=== PATIENT | male | born 1930 | race American Indian/Alaskan Native ===

== ENCOUNTER 2017-09-28 11:32 | Inpatient (IN) | payer MEDICARE ==
--- NOTE | 2017-09-28 11:53 | Emergency Department Report ---
HPI - General Time Seen by Provider: 09/28/17 11:39 - HPI HPI: A 87 year-old male presents to the emergency department via EMS from home with complaint of sudden nausea, vomiting, diaphoresis and upper abdominal pain. The patient is here with one of his caretakers who says that his vomit smelled like bile. He did not take anything and was not given anything for his symptoms prior presentation. His primary care physician is Dr. Ever Figueroa. He has a past medical history that includes DM, HTN and previous CVA. No recent travel or sick contacts at home. His tyre retreader is his medical decision maker and DPOA. ED Past Medical Hx - Past Medical History Hx Hypertension: Yes Hx CVA: Yes Hx Diabetes: Yes Hx Dementia: Yes (patient on Aricept) Hx HIV: No Additional medical history: high cholesterol; bells palsy; BPH - Surgical History Additional Surgical History: tonsillectomy - Social History Smoking Status: Never Smoker - Medications Home Medications: Home Medications Medication Instructions Recorded Confirmed Last Taken Type Atorvastatin (Nf) [Lipitor] 10 mg PO DAILY 03/17/13 09/28/17 Unknown History Clopidogrel [Plavix] 75 mg PO QDAY 03/17/13 09/28/17 Unknown History Donepezil HCl [Aricept Odt] 10 mg PO QDAY 03/17/13 09/28/17 Unknown History Gabapentin 100 mg PO QHS 03/17/13 09/28/17 Unknown History Losartan [Cozaar] 100 mg PO QDAY #30 tablet 03/19/13 09/28/17 Unknown Rx Insulin Aspart Prot/Aspart(Nf) 30 units SQ DAILY 01/01/14 09/28/17 01/01/14 History [NovoLOG Mix 70/30 VIAL] hydrALAZINE [Apresoline TAB] 50 mg PO Q12H 01/01/14 09/28/17 Unknown History NIFEdipine XL [Procardia Xl] 30 mg PO Q12HR #60 tablet 11/08/14 09/28/17 Unknown Rx Atenolol [Tenormin] 25 mg PO DAILY 09/28/17 09/28/17 Unknown History Esomeprazole Magnesium [NexIUM] 40 mg PO QDAY 09/28/17 09/28/17 Unknown History Tamsulosin [Flomax] 0.4 mg PO QHS 09/28/17 09/28/17 Unknown History amLODIPine [Norvasc] 5 mg PO BID 09/28/17 09/28/17 Unknown History ED Review of Systems ROS: Stated complaint: N/V X 1 HR Other details as noted in HPI Comment: All other systems reviewed and negative Constitutional: denies: chills, fever Eyes: denies: eye pain, eye discharge, vision change ENT: denies: ear pain, throat pain Respiratory: denies: cough, shortness of breath, wheezing Cardiovascular: denies: chest pain, palpitations Gastrointestinal: abdominal pain, nausea, vomiting Genitourinary: denies: urgency, dysuria Musculoskeletal: denies: back pain, joint swelling, arthralgia Skin: denies: rash, lesions Neurological: denies: headache, weakness, paresthesias Physical Exam - Physical Exam Physical Exam: GENERAL: The patient is well-developed well-nourished. HENT: Normocephalic. Atraumatic. Patient has moist mucous membranes. EYES: Extraocular motions are intact. Pupils equal reactive to light bilaterally. NECK: Supple. Trachea is midline. CHEST/LUNGS: Clear to auscultation. There is no respiratory distress noted. HEART/CARDIOVASCULAR: Regular. There is no tachycardia. There is no murmur. ABDOMEN: Abdomen is soft there is some upper abdominal tenderness to palpation. No guarding. Patient has normal bowel sounds. There is no abdominal distention. SKIN: There is no rash. There is no edema. There is no diaphoresis. NEURO: The patient is awake, alert and cooperative. The patient has no focal neurologic deficits. The patient has normal speech . MUSCULOSKELETAL: There is no tenderness or deformity. There is no evidence of acute injury. ED Medical Decision Making - Lab Data Result diagrams: 09/28/17 11:50 09/28/17 11:50 - EKG Data -: EKG Interpreted by Me EKG shows normal: sinus rhythm, axis, intervals, QRS complexes, ST-T waves Rate: bradycardia (56 bpm) - EKG Data When compared to previous EKG there are: no significant change Interpretation: unchanged when compared t (03/27/15) - Radiology Data Radiology results: report reviewed, image reviewed interpreted by me: Chest x-ray does not show any acute process. There are no pleural effusions, obvious pneumonia and there is no pneumothorax. Abdominal x-ray does not show any acute process. Nonspecific nonobstructive bowel gas. RIGHT UPPER QUADRANT ABDOMINAL ULTRASOUND: 09/28/17 11:32:00 CLINICAL: Upper abdominal pain. FINDINGS: High-resolution ultrasound demonstrated a normal liver. Normal hepatic vasculature and inferior vena cava. Moderate distention of the gallbladder and moderate gallbladder sludge. No cholelithiasis. The gall bladder wall measures 2.0 mm in thickness. No gallbladder tenderness to pressure of the probe. Normal intrahepatic and extra hepatic bile ducts. The common bile duct measures 5.0 mm diameter. The pancreas was not well imaged because of bowel gas. Normal upper abdominal aorta. The right kidney is normal and measures 9.7 x 6.2 x 5.3cm. No ascites or mass. IMPRESSION: Gallbladder sludge but no cholelithiasis and no signs of acute cholecystitis. Transcribed By: REF Dictated By: DAISY FLORES MD Electronically Authenticated By: DAISY FLORES MD Signed Date/Time: 09/28/17 1319 - Medical Decision Making Patient presented with the complaint of nausea, vomiting, abdominal pain, diaphoresis. Chest and abdominal x-ray did not show any acute process. EKG did not show any ST elevation PR. Labs are mostly unremarkable. He had an ultrasound that showed gallbladder sludge without cholecystitis but this could be the reason for his symptoms. However he has had 2 troponins thus far and they have started to trend upwards. The patient is not complaining of any chest pain at this time but he is a diabetic with a history of dementia and I cannot rule out that this is not some type of atypical cardiac event. On top of that the patient has some hypertension that is seen getting into the systolic 180. For these reasons and for further evaluation, the patient will be admitted to the hospital and has been accepted for admission by the hospitalist, Dr. Viera. - Differential Diagnosis PR, Cholelithiasis, Cholecystitis, Gastritis Critical care attestation.: If time is entered above; I have spent that time in minutes in the direct care of this critically ill patient, excluding procedure time. ED Disposition Clinical Impression: Physical deconditioning, Elevated troponin Hypertension Qualifiers: Hypertension type: essential hypertension Qualified Code(s): I10 - Essential ( primary) hypertension Nausea & vomiting Qualifiers: Vomiting type: unspecified Abdominal pain Qualifiers: Abdominal location: unspecified location Qualified Code(s): R10.9 - Unspecified abdominal pain Disposition: DC-09 OP ADMIT IP TO THIS HOSP Is pt being admited?: Yes Condition: Stable Time of Disposition: 18:32
[2017-09-28 12:06] LABS: Basophils % (Auto) 0.3 % (0.0-1.8); Eosinophils # (Auto) 0.1 K/mm3 (0.0-0.4); Eosinophils % (Auto) 0.8 % (0.0-4.3); Hematocrit 38.2 % (35.5-45.6); Hemoglobin 12.9 gm/dl (11.8-15.2); Lymphocytes # (Auto) 2.3 K/mm3 (1.2-5.4); Lymphocytes % (Auto) 23.5 % (13.4-35.0); Mean Corpuscular HGB Conc 34 % (32-34); Mean Corpuscular Hemoglobin 32 pg (28-32); Mean Corpuscular Volume 94 fl (84-94); Monocytes # (Auto) 0.5 K/mm3 (0.0-0.8); Platelet Count 152 K/mm3 (140-440); Red Blood Count 4.05 M/mm3 (3.65-5.03); Red Cell Distribution Width 14.5 % (13.2-15.2)
[2017-09-28 12:23] LABS: Alanine Aminotransferase 19 units/L (7-56); Albumin 3.8 g/dL (3.9-5); BUN/Creatinine Ratio 19; Blood Urea Nitrogen 25 mg/dL (9-20); Calcium 9.6 mg/dL (8.4-10.2); Hemolysis Index 6
[2017-09-28 12:27] LABS: Bilirubin,Direct < 0.2 mg/dL (0-0.2)
--- NOTE | 2017-09-28 13:13 | XRay Report ---
ABDOMINAL SERIES WITH CXR THREE VIEWS: 09/28/17 11:43:00 CLINICAL: Abdominal pain. FINDINGS: Abdomen: Supine upright views demonstrate no distended bowel and no air-fluid levels. A large volume of stool in the right colon, proximal transverse colon and rectum. No mass or suspicious calcifications. No pneumoperitoneum. Mild degenerative changes in the spine. Chest: Normal IMPRESSION: Negative chest and negative abdomen with abundant stool in the colon.
--- NOTE | 2017-09-28 13:27 | Ultrasound Report ---
RIGHT UPPER QUADRANT ABDOMINAL ULTRASOUND: 09/28/17 11:32:00 CLINICAL: Upper abdominal pain. FINDINGS: High-resolution ultrasound demonstrated a normal liver. Normal hepatic vasculature and inferior vena cava. Moderate distention of the gallbladder and moderate gallbladder sludge. No cholelithiasis. The gall bladder wall measures 2.0 mm in thickness. No gallbladder tenderness to pressure of the probe. Normal intrahepatic and extra hepatic bile ducts. The common bile duct measures 5.0 mm diameter. The pancreas was not well imaged because of bowel gas. Normal upper abdominal aorta. The right kidney is normal and measures 9.7 x 6.2 x 5.3cm. No ascites or mass. IMPRESSION: Gallbladder sludge but no cholelithiasis and no signs of acute cholecystitis.
[2017-09-28 15:01] LABS: Bacteria,Urine 4+ /HPF (Negative); Bilirubin,Urine NEG (Negative); Blood,Urine SM (Negative); Color,Urine Yellow (Yellow); Mucus,Urine FEW /HPF; Urobilinogen,Urine < 2.0 mg/dL (<2.0)
--- NOTE | 2017-09-28 17:15 | History and Physical Report ---
History of Present Illness Chief complaint: No acting right. History of present illness: 87 YO Male with HTN, CVA, DM, Dementia, HLD, BPH presents to ED for evaluation. Pt is confused and unable to provide detailed history. Pt history taken from ED staff, and POA who states that patient has n ot been acting right for the past 2 days. As per POA, the patient has experienced pain in his chest and abdomen for the past day, with worsening symptoms over the past 8 hours. Pt is unable to rate his pain, but was observed to have nausea, vomiting, and diaphoresis. No reports of fever, chills, palpitation, syncope, trauma, falls, productive cough, unintentional weight loss, night sweats, skin rash, or recent ill contacts. No further history is made available. Pt seen and evaluated in ED and found to have Hypertensive Encephalopathy as well as evidence of Acute congestive Heart Failure. Pt admitted to telemetry. Cardiology consulted in ED. Past History Past Medical History: diabetes, hyperlipidemia, other (Dementia, BPH) Past Surgical History: tonsillectomy Social history: single. denies: smoking, alcohol abuse, prescription drug abuse Family history: diabetes, hypertension Medications and Allergies Allergies Allergy/AdvReac Type Severity Reaction Status Date / Time Penicillins Allergy Hives Verified 09/28/17 11:53 Home Medications Medication Instructions Recorded Confirmed Last Taken Type Atorvastatin (Nf) [Lipitor] 10 mg PO DAILY 03/17/13 09/28/17 Unknown History Clopidogrel [Plavix] 75 mg PO QDAY 03/17/13 09/28/17 Unknown History Donepezil HCl [Aricept Odt] 10 mg PO QDAY 03/17/13 09/28/17 Unknown History Gabapentin 100 mg PO QHS 03/17/13 09/28/17 Unknown History Losartan [Cozaar] 100 mg PO QDAY #30 tablet 03/19/13 09/28/17 Unknown Rx Insulin Aspart Prot/Aspart(Nf) 30 units SQ DAILY 01/01/14 09/28/17 01/01/14 History [NovoLOG Mix 70/30 VIAL] hydrALAZINE [Apresoline TAB] 50 mg PO Q12H 01/01/14 09/28/17 Unknown History NIFEdipine XL [Procardia Xl] 30 mg PO Q12HR #60 tablet 11/08/14 09/28/17 Unknown Rx Atenolol [Tenormin] 25 mg PO DAILY 09/28/17 09/28/17 Unknown History Esomeprazole Magnesium [NexIUM] 40 mg PO QDAY 09/28/17 09/28/17 Unknown History Tamsulosin [Flomax] 0.4 mg PO QHS 09/28/17 09/28/17 Unknown History amLODIPine [Norvasc] 5 mg PO BID 09/28/17 09/28/17 Unknown History Review of Systems ROS unobtainable: due to mental status Exam - Constitutional Vitals: Temp Pulse Resp BP Pulse Ox 98.6 F 61 18 162/83 100 09/28/17 11:35 09/28/17 14:55 09/28/17 14:55 09/28/17 14:55 09/28/17 14:55 General appearance: Present: mild distress - EENT Eyes: Present: PERRL ENT: hearing intact, clear oral mucosa - Neck Neck: Present: supple, normal ROM - Respiratory Respiratory effort: normal Respiratory: bilateral: CTA - Cardiovascular Heart Sounds: Present: S1 & S2. Absent: rub, click - Extremities Extremities: pulses symmetrical, No edema Extremity abnormal: edema Peripheral Pulses: within normal limits - Abdominal General gastrointestinal: Present: soft, non-tender, non-distended, normal bowel sounds Male genitourinary: Present: normal - Integumentary Integumentary: Present: clear, warm, dry - Musculoskeletal Musculoskeletal: generalized weakness - Psychiatric Psychiatric: no intact judgment & insight, no memory intact - Neurologic Neurologic: moves all extremities, other (confused, ) Results - Labs CBC & Chem 7: 09/28/17 11:50 09/28/17 11:50 Labs: Abnormal lab results 09/28/17 09/28/17 Range/Units 11:50 11:50 Seg Neutrophils % 70.4 H (40.0-70.0) % BUN 25 H (9-20) mg/dL Glucose 107 H (75-100) mg/dL Albumin 3.8 L (3.9-5) g/dL Assessment and Plan - Patient Problems (1) CHF (congestive heart failure) Current Visit: Yes Status: Suspected Qualifiers: Heart failure type: systolic Heart failure chronicity: acute Qualified Code(s): I50.21 - Acute systolic (congestive) heart failure Plan to address problem: Admit to telemetry, strict I/O, uop q shift, daily weight, supplemental oxygen, BNP, Chest Xray, Echo, cardiology consulted. (2) Hypertensive encephalopathy syndrome Current Visit: Yes Status: Acute Plan to address problem: Monitor bp q shift, resume prehospital medication, IV hydralazine prn for systolic above 165 (3) BPH (benign prostatic hyperplasia) Current Visit: Yes Status: Acute Qualifiers: Lower urinary tract symptom presence: unspecified whether lower urinary tract symptoms present Qualified Code(s): N40.0 - Benign prostatic hyperplasia without lower urinary tract symptoms Plan to address problem: continue prehospital medical management, monitor uop q shift (4) Diabetes mellitus Current Visit: No Status: Chronic Qualifiers: Diabetes mellitus type: type 2 Diabetes mellitus complication status: with unspecified complications Qualified Code(s): E11.8 - Type 2 diabetes mellitus with unspecified complications Plan to address problem: consistent carbohydrate diet, insulin, accu check (5) DVT prophylaxis Current Visit: No Status: Acute Plan to address problem: SCD to BLE
[2017-09-28] MEDS ORDERED: ZOFRAN IV PRN (17:18)
[2017-09-28] MEDS ORDERED: BABY ASPIRIN PO STA (17:18)
[2017-09-28] MEDS ORDERED: TYLENOL PO PRN (17:18)
[2017-09-28] MEDS ORDERED: NITROSTAT SL PRN (17:18)
[2017-09-28] MEDS ORDERED: SODIUM CHLORIDE FLUSH SYRINGE 10 ML IV PRN ×2 (17:18)
[2017-09-28] MEDS ORDERED: PROVENTIL IH PRN (17:18)
[2017-09-28 17:56] LABS: Chol/HDL Ratio 2.1 %
[2017-09-28] MEDS: APRESOLINE PO SCH (17:57)
[2017-09-28] MEDS: PROCARDIA XL PO SCH (22:42)
[2017-09-28] MEDS: NEURONTIN PO SCH (22:42)
[2017-09-28] MEDS: FLOMAX PO SCH (22:42)
[2017-09-28] MEDS: NORVASC PO SCH (22:44)
[2017-09-28] MEDS: SODIUM CHLORIDE FLUSH SYRINGE 10 ML IV SCH (22:45)
[2017-09-29] MEDS ORDERED: NON-FORMULARY (Esomeprazole Magnesium [Nexium] 40 MG) PO SCH (10:00)
[2017-09-29] MEDS ORDERED: TENORMIN PO SCH (10:00)
[2017-09-29] MEDS ORDERED: DONEPEZIL HCL 10 MG PO SCH (10:00)
[2017-09-29] MEDS ORDERED: NON-FORMULARY (Insulin Aspart Prot/Aspart(Nf) 30 UNITS) SQ SCH (10:00)
[2017-09-29] MEDS: PLAVIX PO SCH ×2 (10:24→14:00)
[2017-09-29] MEDS: NORVASC PO SCH ×2 (10:24→22:50)
[2017-09-29] MEDS: PROTONIX PO SCH ×2 (10:24→14:01)
[2017-09-29] MEDS: PROCARDIA XL PO SCH ×2 (10:24→22:55)
[2017-09-29] MEDS: ARICEPT PO SCH ×2 (10:24→14:03)
[2017-09-29] MEDS: APRESOLINE PO SCH ×2 (10:24→22:55)
[2017-09-29] MEDS: COZAAR PO SCH (10:24)
[2017-09-29] MEDS: SODIUM CHLORIDE FLUSH SYRINGE 10 ML IV SCH ×3 (10:25→22:55)
--- NOTE | 2017-09-29 13:21 | Progress Note ---
Assessment and Plan / Abdominal pain likely due to gall bladder sludge? no N/V now, will start on diet, if no improvement will consult GS / Suspected CHF (congestive heart failure) on amission strict I/O, uop q shift, daily weight, supplemental oxygen, will follow Echo, cardiology consulted. / Hypertension Monitor bp q shift, resume prehospital medication, IV hydralazine prn for systolic above 165 / BPH (benign prostatic hyperplasia) continue prehospital medical management, monitor uop q shift / Diabetes mellitus type 2 consistent carbohydrate diet, insulin, accu check / DVT prophylaxis SCD to BLE Brief History: The patient is an 87-year-old man with a history of dementia, diabetes, hypertension and old CVA. He was reported by his caregiver is to have recurrent vomiting and complained of some abdominal pain. Abdominal US showed gall bladder sludge, no sign of cholecystitis. Subjective Date of service: 09/29/17 Interval history: Pt seen and examined states abdominal pain improved, no N/V denies SOB/chest pain Objective - Constitutional Vitals: Vital Signs - 12hr 09/29/17 09/29/17 09/29/17 06:19 07:59 10:00 Temperature 98.1 F 98.2 F Pulse Rate 55 L 55 L Pulse Rate [ 54 L Apical] Pulse Rate [ 56 L Left Radial] Pulse Rate [ 56 L Right Radial] Respiratory 20 20 Rate Blood Pressure 134/57 133/64 O2 Sat by Pulse 97 95 Oximetry 09/29/17 11:39 Temperature Pulse Rate 52 L Pulse Rate [ Apical] Pulse Rate [ Left Radial] Pulse Rate [ Right Radial] Respiratory Rate Blood Pressure O2 Sat by Pulse Oximetry General appearance: Present: no acute distress, other (elderly) - EENT Eyes: PERRL, EOM intact ENT: hearing intact, clear oral mucosa Ears: bilateral: normal - Neck Neck: supple, normal ROM - Respiratory Respiratory effort: normal Respiratory: bilateral: CTA - Cardiovascular Rhythm: regular Heart Sounds: Present: S1 & S2. Absent: gallop, rub Extremities: pulses intact, No edema, normal color, Full ROM - Gastrointestinal General gastrointestinal: Present: soft, non-tender, non-distended, normal bowel sounds - Integumentary Integumentary: clear, warm, dry - Musculoskeletal Musculoskeletal: 1, strength equal bilaterally - Neurologic Neurologic: moves all extremities - Psychiatric Psychiatric: memory intact, appropriate mood/affect, intact judgment & insight - Labs CBC & Chem 7: 09/28/17 11:50 09/30/17 04:36 Labs: Abnormal lab results 09/28/17 09/28/17 09/29/17 Range/Units 17:26 22:26 08:07 POC Glucose 222 H 177 H (70-105) HDL Cholesterol 83 H (40-59) mg/dL 09/29/17 Range/Units 12:14 POC Glucose 182 H (70-105) HDL Cholesterol (40-59) mg/dL - Imaging and cardiology US - abdomen: report reviewed
--- NOTE | 2017-09-29 13:23 | Consultation ---
History of Present Illness Consult date: 09/29/17 Consult reason: other ("acs") History of present illness: The patient is an 87-year-old man with a history of dementia, diabetes, hypertension and old CVA. He was reported by his caregiver is to have recurrent vomiting and complained of some abdominal pain. There was no complaint of chest pain, no observation of shortness of breath and the patient has no lower extremity edema. On presentation, the EKG shows a normal sinus rhythm, left axis deviation, left ventricular hypertrophy but no ST or T wave. Currently, the patient is comfortable in his bed in the telemetry unit. Past History Past Medical History: diabetes, hyperlipidemia, other (Dementia, BPH) Past Surgical History: tonsillectomy Social history: single. denies: smoking, alcohol abuse, prescription drug abuse Family history: diabetes, hypertension Medications and Allergies Allergies Allergy/AdvReac Type Severity Reaction Status Date / Time Penicillins Allergy Hives Verified 09/28/17 11:53 Home Medications Medication Instructions Recorded Confirmed Last Taken Type Atorvastatin (Nf) [Lipitor] 10 mg PO DAILY 03/17/13 09/28/17 Unknown History Clopidogrel [Plavix] 75 mg PO QDAY 03/17/13 09/28/17 Unknown History Donepezil HCl [Aricept Odt] 10 mg PO QDAY 03/17/13 09/28/17 Unknown History Gabapentin 100 mg PO QHS 03/17/13 09/28/17 Unknown History Losartan [Cozaar] 100 mg PO QDAY #30 tablet 03/19/13 09/28/17 Unknown Rx Insulin Aspart Prot/Aspart(Nf) 30 units SQ DAILY 01/01/14 09/28/17 01/01/14 History [NovoLOG Mix 70/30 VIAL] hydrALAZINE [Apresoline TAB] 50 mg PO Q12H 01/01/14 09/28/17 Unknown History NIFEdipine XL [Procardia Xl] 30 mg PO Q12HR #60 tablet 11/08/14 09/28/17 Unknown Rx Atenolol [Tenormin] 25 mg PO DAILY 09/28/17 09/28/17 Unknown History Esomeprazole Magnesium [NexIUM] 40 mg PO QDAY 09/28/17 09/28/17 Unknown History Tamsulosin [Flomax] 0.4 mg PO QHS 09/28/17 09/28/17 Unknown History amLODIPine [Norvasc] 5 mg PO BID 09/28/17 09/28/17 Unknown History Active Meds: Active Medications Acetaminophen (Tylenol) 650 mg PO Q4H PRN PRN Reason: Pain MILD(1-3)/Fever >100.5/MACK Albuterol (Proventil) 2.5 mg IH Q4HRT PRN PRN Reason: Shortness Of Breath Amlodipine Besylate (Norvasc) 5 mg PO BID [facility] Last Admin: 09/29/17 10:24 Dose: Not Given Atenolol (Tenormin) 25 mg PO DAILY [facility] Last Admin: 09/29/17 10:25 Dose: Not Given Atorvastatin Calcium (Lipitor) 10 mg PO DAILY [facility] Last Admin: 09/29/17 10:24 Dose: Not Given Clopidogrel Bisulfate (Plavix) 75 mg PO QDAY [facility] Last Admin: 09/29/17 10:24 Dose: Not Given Donepezil HCl (Aricept) 10 mg PO QDAY [facility] Last Admin: 09/29/17 10:24 Dose: Not Given Gabapentin (Neurontin) 100 mg PO QHS [facility] Last Admin: 09/28/17 22:42 Dose: 100 mg Hydralazine HCl (Apresoline) 50 mg PO Q12HR [facility] Last Admin: 09/29/17 10:24 Dose: Not Given Insulin Human Isoph/Insulin Regular (Humulin 70/30) 30 unit SUB-Q QDDIAB [facility] Last Admin: 09/29/17 08:00 Dose: Not Given Losartan Potassium (Cozaar) 100 mg PO QDAY [facility] Last Admin: 09/29/17 10:24 Dose: Not Given Nifedipine (Procardia Xl) 30 mg PO Q12HR [facility] Last Admin: 09/29/17 10:24 Dose: Not Given Nitroglycerin (Nitrostat) 0.4 mg SL Q5M PRN PRN Reason: Chest Pain Ondansetron HCl (Zofran) 4 mg IV Q8H PRN PRN Reason: Nausea And Vomiting Pantoprazole Sodium (Protonix) 40 mg PO DAILY [facility] Last Admin: 09/29/17 10:24 Dose: Not Given Sodium Chloride (Sodium Chloride Flush Syringe 10 Ml) 10 ml IV BID [facility] Last Admin: 09/29/17 10:25 Dose: Not Given Sodium Chloride (Sodium Chloride Flush Syringe 10 Ml) 10 ml IV PRN PRN PRN Reason: LINE FLUSH Tamsulosin HCl (Flomax) 0.4 mg PO QHS [facility] Last Admin: 09/28/17 22:42 Dose: 0.4 mg Review of Systems ROS unobtainable: due to mental status Physical Examination Vital Signs Temp Pulse Resp BP Pulse Ox 98.6 F 58 L 18 176/70 97 09/28/17 11:35 09/28/17 11:35 09/28/17 11:35 09/28/17 11:35 09/28/17 11:35 General appearance: no acute distress HEENT: Positive: PERRL Neck: Positive: neck supple Cardiac: Positive: Reg Rate and Rhythm Lungs: Positive: Decreased Breath Sounds Neuro: Positive: Grossly Intact Abdomen: Positive: Soft Male genitourinary: Positive: deferred Skin: Positive: Clear Extremities: Absent: edema Results 09/28/17 11:50 09/28/17 11:50 Lipids 09/28/17 Range/Units 17:26 Triglycerides 43 (2-149) mg/dL Cholesterol 175 (50-199) mg/dL HDL Cholesterol 83 H (40-59) mg/dL Cholesterol/HDL Ratio 2.10 % EKG interpretations - Telemetry EKG Rhythm: Sinus Rhythm Assessment and Plan - Patient Problems (1) Nausea & vomiting Current Visit: Yes Status: Acute Qualifiers: Vomiting type: unspecified Plan to address problem: Patient presented with nausea vomiting and abdominal pain. There are no cardiac symptoms reported by either patient or his caregivers. ECG is in normal sinus rhythm with no ischemic changes. The patient is a frail, elderly 87-year-old with advanced dementia, currently in no acute distress. Recommend no further cardiac workup is indicated at this time. Refer to medical service and gastroenterology for workup of his presenting nausea vomiting and abdominal pain. Will follow intermittently.
[2017-09-29] MEDS: NEURONTIN PO SCH (22:55)
[2017-09-29] MEDS: FLOMAX PO SCH (22:55)
[2017-09-30 05:25] LABS: BUN/Creatinine Ratio 16; Blood Urea Nitrogen 21 mg/dL (9-20); Calcium 8.4 mg/dL (8.4-10.2); Hemolysis Index 16
[2017-09-30] MEDS ORDERED: APRESOLINE PO SCH (08:13)
[2017-09-30] MEDS: PROTONIX PO SCH (10:45)
[2017-09-30] MEDS: ARICEPT PO SCH (10:45)
[2017-09-30] MEDS: LASIX PO SCH (10:46)
[2017-09-30] MEDS: PLAVIX PO SCH (10:46)
[2017-09-30] MEDS: SODIUM CHLORIDE FLUSH SYRINGE 10 ML IV SCH ×2 (10:54→22:47)
[2017-09-30] MEDS: NORVASC PO SCH (10:55)
[2017-09-30] MEDS: COZAAR PO SCH (11:21)
[2017-09-30] MEDS: HumuLIN R SUB-Q SCH ×3 (12:30→22:46)
[2017-09-30] MEDS ORDERED: APRESOLINE IV PRN (13:06)
--- NOTE | 2017-09-30 14:20 | Progress Note ---
Assessment and Plan - Patient Problems (1) Nausea & vomiting Current Visit: Yes Status: Acute Qualifiers: Vomiting type: unspecified Plan to address problem: Patient presented with nausea vomiting and abdominal pain. There are no cardiac symptoms reported by either patient or his caregivers. ECG is in normal sinus rhythm with no ischemic changes. The patient is a frail, elderly 87-year-old with advanced dementia, currently in no acute distress. Recommend no further cardiac workup is indicated at this time. Refer to medical service and gastroenterology for workup of his presenting nausea vomiting and abdominal pain. Will follow intermittently. Subjective Date of service: 09/30/17 Interval history: Patient is comfortable, no new cardiac complaints. Objective Vital Signs Temp Pulse Pulse Resp BP Pulse Ox 09/30/17 11:21 60 176/73 09/30/17 11:14 97.6 F 18 176/73 09/30/17 10:55 56 L 125/65 09/30/17 10:00 99 09/30/17 08:46 47 L 09/30/17 07:57 97.9 F 57 L 8 L 125/65 98 09/30/17 04:47 98.3 F 51 L 20 145/61 96 09/30/17 02:46 56 L 09/29/17 23:55 98.2 F 56 L 18 140/57 98 09/29/17 22:55 58 L 119/50 09/29/17 22:01 99 09/29/17 21:07 53 L 09/29/17 20:07 99.3 F 54 L 16 119/50 97 09/29/17 17:07 97.6 F 54 L 18 134/59 97 09/29/17 14:29 98.4 F 51 L 18 140/58 98 - Physical Examination General: No Apparent Distress HEENT: Positive: PERRL Neck: Positive: neck supple Cardiac: Positive: Reg Rate and Rhythm Lungs: Positive: Decreased Breath Sounds Neuro: Positive: Grossly Intact Abdomen: Positive: Soft Skin: Positive: Clear Extremities: Absent: edema - Labs and Meds Comprehensive Metabolic Panel 09/30/17 Range/Units 04:36 Sodium 139 (137-145) mmol/L Potassium 3.8 (3.6-5.0) mmol/L Chloride 101.5 (98-107) mmol/L Carbon Dioxide 29 (22-30) mmol/L BUN 21 H (9-20) mg/dL Creatinine 1.3 (0.8-1.5) mg/dL Glucose 158 H (75-100) mg/dL Calcium 8.4 (8.4-10.2) mg/dL
--- NOTE | 2017-09-30 14:26 | Progress Note ---
Assessment and Plan / Abdominal pain likely due to gall bladder sludge? no N/V now, tolerating diet, f/u GS outpt / Suspected CHF (congestive heart failure) on admission, ruled out strict I/O, uop q shift, daily weight, supplemental oxygen, cardiology consulted. 2d echo showed preserved EF / Hypertension Monitor bp q shift, IV hydralazine prn for systolic above 160 BP stable with current meds /Sinus Bradycardia hold BB and procardia / BPH (benign prostatic hyperplasia) continue flomax, monitor uop q shift /dementia, cont aricept /Physical debility, consult PT / Diabetes mellitus type 2 consistent carbohydrate diet, insulin, accu check / DVT prophylaxis SCD to BLE Disposition: follow PT eval. may need placement. Brief History: The patient is an 87-year-old man with a history of dementia, diabetes, hypertension and old CVA. He was reported by his caregiver is to have recurrent vomiting and complained of some abdominal pain. Abdominal US showed gall bladder sludge, no sign of cholecystitis. Admitted for concern of CHF and further management for abdominal pain. Physical exam: General appearance: Present: no acute distress, other (elderly) - EENT Eyes: PERRL, EOM intact ENT: hearing intact, clear oral mucosa Ears: bilateral: normal - Neck Neck: supple, normal ROM - Respiratory Respiratory effort: normal Respiratory: bilateral: CTA - Cardiovascular Rhythm: regular Heart Sounds: Present: S1 & S2. Absent: gallop, rub Extremities: pulses intact, No edema, normal color, Full ROM - Gastrointestinal General gastrointestinal: Present: soft, non-tender, non-distended, normal bowel sounds - Integumentary Integumentary: clear, warm, dry - Musculoskeletal Musculoskeletal: 1, strength equal bilaterally - Neurologic Neurologic: moves all extremities - Psychiatric Psychiatric: memory intact, appropriate mood/affect, intact judgment & insight Subjective Date of service: 09/30/17 Interval history: Pt seen and examined states abdominal pain improved, no N/V, tolerated diet denies SOB/chest pain, RN reported unsteady gait, require assistance with ambulation Objective - Constitutional Vitals: Vital Signs - 12hr 09/30/17 09/30/17 09/30/17 02:46 04:47 07:57 Temperature 98.3 F 97.9 F Pulse Rate 56 L 51 L 57 L Respiratory 20 8 L Rate Blood Pressure 145/61 125/65 O2 Sat by Pulse 96 98 Oximetry 09/30/17 09/30/17 09/30/17 08:46 10:00 10:55 Temperature Pulse Rate 47 L 56 L Respiratory Rate Blood Pressure 125/65 O2 Sat by Pulse 99 Oximetry 09/30/17 09/30/17 11:14 11:21 Temperature 97.6 F Pulse Rate 60 Respiratory 18 Rate Blood Pressure 176/73 176/73 O2 Sat by Pulse Oximetry - Labs CBC & Chem 7: 09/28/17 11:50 09/30/17 04:36 Labs: Abnormal lab results 09/30/17 09/30/17 09/30/17 Range/Units 04:36 06:30 11:24 BUN 21 H (9-20) mg/dL Glucose 158 H (75-100) mg/dL POC Glucose 170 H 350 H (70-105)
[2017-09-30] MEDS: APRESOLINE PO SCH ×2 (15:36→22:44)
[2017-09-30] MEDS: FLOMAX PO SCH (22:44)
[2017-09-30] MEDS: NEURONTIN PO SCH (22:45)
[2017-10-01] MEDS: APRESOLINE PO SCH ×3 (05:58→23:20)
[2017-10-01 06:45] LABS: BUN/Creatinine Ratio 13; Blood Urea Nitrogen 16 mg/dL (9-20); Calcium 8.6 mg/dL (8.4-10.2); Hemolysis Index 7
[2017-10-01] MEDS: HumuLIN R SUB-Q SCH ×4 (08:12→23:22)
[2017-10-01] MEDS: ARICEPT PO SCH (09:35)
[2017-10-01] MEDS: PROTONIX PO SCH (09:35)
[2017-10-01] MEDS: LASIX PO SCH (09:35)
[2017-10-01] MEDS: PLAVIX PO SCH (09:35)
[2017-10-01] MEDS: NORVASC PO SCH (09:35)
[2017-10-01] MEDS: COZAAR PO SCH (09:36)
[2017-10-01] MEDS: SODIUM CHLORIDE FLUSH SYRINGE 10 ML IV SCH ×2 (09:43→23:22)
--- NOTE | 2017-10-01 15:27 | Progress Note ---
Assessment and Plan Assessment and plan: --Abdominal pain; symptoms significantly improved --Abdominal ultrasound :gall bladder sludge, consult surgery for evaluation Nothing by mouth midnight --Suspected CHF (congestive heart failure) on amission Echocardiogram within normal limits, ejection fraction 60-65%, supportive care No evidence of congestive heart failure --Hypertension; well controlled Continue current antihypertensives and when necessary medications -- BPH (benign prostatic hyperplasia) continue prehospital medical management, monitor uop q shift --Diabetes mellitus type 2 consistent carbohydrate diet, insulin, accu check --DVT prophylaxis; SCD, Lovenox --Physical therapy --Full CODE STATUS --DC planning case management/home with home health versus placement And medically stable History Interval history: Patient seen and examined medical records reviewed Patient feels slightly better but still complains of weakness Alert awake oriented 3 Vital signs reviewed Hospitalist Physical - Constitutional Vitals: Temp Pulse Resp BP Pulse Ox 98.7 F 70 18 127/57 98 10/01/17 12:45 10/01/17 14:55 10/01/17 12:45 10/01/17 14:55 10/01/17 12:45 General appearance: Present: no acute distress, cachectic, other (elderly) - EENT Eyes: Present: PERRL, EOM intact - Neck Neck: Present: supple, normal ROM - Respiratory Respiratory effort: normal Respiratory: bilateral: diminished, rhonchi, negative: rales, wheezing - Cardiovascular Rhythm: regular Heart Sounds: Present: S1 & S2 - Extremities Extremities: no ischemia, No edema - Abdominal General gastrointestinal: soft, non-tender, non-distended, normal bowel sounds - Integumentary Integumentary: Present: clear, warm - Psychiatric Psychiatric: appropriate mood/affect, cooperative - Neurologic Neurologic: CNII-XII intact, moves all extremities Results - Labs CBC & Chem 7: 09/28/17 11:50 10/01/17 04:39 Labs: Laboratory Last Values WBC 9.6 K/mm3 (4.5-11.0) 09/28/17 11:50 RBC 4.05 M/mm3 (3.65-5.03) 09/28/17 11:50 Hgb 12.9 gm/dl (11.8-15.2) 09/28/17 11:50 Hct 38.2 % (35.5-45.6) 09/28/17 11:50 MCV 94 fl (84-94) 09/28/17 11:50 MCH 32 pg (28-32) 09/28/17 11:50 MCHC 34 % (32-34) 09/28/17 11:50 RDW 14.5 % (13.2-15.2) 09/28/17 11:50 Plt Count 152 K/mm3 (140-440) 09/28/17 11:50 Lymph % (Auto) 23.5 % (13.4-35.0) 09/28/17 11:50 Ross % (Auto) 5.0 % (0.0-7.3) 09/28/17 11:50 Eos % (Auto) 0.8 % (0.0-4.3) 09/28/17 11:50 Baso % (Auto) 0.3 % (0.0-1.8) 09/28/17 11:50 Lymph # 2.3 K/mm3 (1.2-5.4) 09/28/17 11:50 Ross # 0.5 K/mm3 (0.0-0.8) 09/28/17 11:50 Eos # 0.1 K/mm3 (0.0-0.4) 09/28/17 11:50 Baso # 0.0 K/mm3 (0.0-0.1) 09/28/17 11:50 Seg Neutrophils % 70.4 % (40.0-70.0) H 09/28/17 11:50 Seg Neutrophils # 6.8 K/mm3 (1.8-7.7) 09/28/17 11:50 Sodium 139 mmol/L (137-145) 10/01/17 04:39 Potassium 4.2 mmol/L (3.6-5.0) 10/01/17 04:39 Chloride 102.0 mmol/L (98-107) 10/01/17 04:39 Carbon Dioxide 25 mmol/L (22-30) 10/01/17 04:39 Anion Gap 16 mmol/L 10/01/17 04:39 BUN 16 mg/dL (9-20) 10/01/17 04:39 Creatinine 1.2 mg/dL (0.8-1.5) 10/01/17 04:39 Estimated GFR > 60 ml/min 10/01/17 04:39 BUN/Creatinine Ratio 13 % 10/01/17 04:39 Glucose 187 mg/dL (75-100) H 10/01/17 04:39 POC Glucose 90 (70-105) 09/30/17 21:32 Hemoglobin A1c 9.2 % (4-6) H 09/30/17 14:30 Calcium 8.6 mg/dL (8.4-10.2) 10/01/17 04:39 Total Bilirubin 0.40 mg/dL (0.1-1.2) 09/28/17 11:50 Direct Bilirubin < 0.2 mg/dL (0-0.2) 09/28/17 11:50 Indirect Bilirubin 0.2 mg/dL 09/28/17 11:50 AST 25 units/L (5-40) 09/28/17 11:50 ALT 19 units/L (7-56) 09/28/17 11:50 Alkaline Phosphatase 120 units/L (35-129) 09/28/17 11:50 Troponin T 0.023 ng/mL (0.00-0.029) 09/28/17 23:25 NT-Pro-B Natriuret Pep 74.79 pg/mL (0-900) 09/28/17 18:09 Total Protein 6.7 g/dL (6.3-8.2) 09/28/17 11:50 Albumin 3.8 g/dL (3.9-5) L 09/28/17 11:50 Albumin/Globulin Ratio 1.3 % 09/28/17 11:50 Triglycerides 43 mg/dL (2-149) 09/28/17 17:26 Cholesterol 175 mg/dL (50-199) 09/28/17 17:26 LDL Cholesterol Direct 90 mg/dL (50-130) 09/28/17 17:26 HDL Cholesterol 83 mg/dL (40-59) H 09/28/17 17:26 Cholesterol/HDL Ratio 2.10 % 09/28/17 17:26 TSH 1.790 mlU/mL (0.270-4.200) 09/30/17 14:30 Free T4 1.01 ng/dL (0.76-1.46) 09/30/17 14:30 Urine Color Yellow (Yellow) 09/28/17 14:29 Urine Turbidity Clear (Clear) 09/28/17 14:29 Urine pH 5.0 (5.0-7.0) 09/28/17 14:29 Ur Specific [place] 1.017 (1.003-1.030) 09/28/17 14:29 Urine Protein 100 mg/dl mg/dL (Negative) 09/28/17 14:29 Urine Glucose (UA) Neg mg/dL (Negative) 09/28/17 14: Urine Ketones Neg mg/dL (Negative) 09/28/17 14: Urine Blood Sm (Negative) 09/28/17 14:29 Urine Nitrite Neg (Negative) 09/28/17 14:29 Urine Bilirubin Neg (Negative) 09/28/17 14: Urine Urobilinogen < 2.0 mg/dL (<2.0) 09/28/17 14:29 Ur Leukocyte Esterase Neg (Negative) 09/28/17 14:29 Urine WBC (Auto) 6.0 /HPF (0.0-6.0) 09/28/17 14:29 Urine RBC (Auto) 2.0 /HPF (0.0-6.0) 09/28/17 14:29 Urine Bacteria (Auto) 4+ /HPF (Negative) 09/28/17 14:29 Urine Mucus Few /HPF 09/28/17 14:29
[2017-10-01] MEDS: NEURONTIN PO SCH (23:19)
[2017-10-01] MEDS: FLOMAX PO SCH (23:20)
[2017-10-02] MEDS: APRESOLINE PO SCH ×3 (06:00→21:03)
[2017-10-02] MEDS: HumuLIN R SUB-Q SCH ×4 (08:24→21:05)
[2017-10-02] MEDS ORDERED: LOVENOX SUB-Q SCH (10:00)
[2017-10-02] MEDS: LASIX PO SCH (11:19)
[2017-10-02] MEDS: COZAAR PO SCH (11:19)
[2017-10-02] MEDS: ARICEPT PO SCH (11:20)
[2017-10-02] MEDS: PLAVIX PO SCH (11:20)
[2017-10-02] MEDS: PROTONIX PO SCH (11:21)
[2017-10-02] MEDS: NORVASC PO SCH (11:21)
[2017-10-02] MEDS: SODIUM CHLORIDE FLUSH SYRINGE 10 ML IV SCH (11:24)
--- NOTE | 2017-10-02 11:47 | Consultation ---
History of Present Illness Consult date: 10/02/17 Reason for consult: abdominal pain Requesting physician: ANA SCHOFIELD Chief complaint: Abdominal pain - History of present illness History of present illness: 87-year-old male with multiple medical problems was originally admitted on September 28 for chest and abdominal pain. Workup revealed gallbladder with sludge on ultrasound. No evidence of any obstruction or infection. General surgery was consulted for this ultrasound finding in light of recent history of abdominal pain and nausea. Patient reports that he was able to eat yesterday without any problems. Denied any abdominal pain yesterday. Denies any abdominal pain today. He did not experience any nausea or vomiting yesterday. He is hungry today. Past History Past Medical History: diabetes, hyperlipidemia, other (Dementia, BPH) Past Surgical History: tonsillectomy Social history: single. denies: smoking, alcohol abuse, prescription drug abuse Family history: diabetes, hypertension Medications and Allergies Allergies Allergy/AdvReac Type Severity Reaction Status Date / Time Penicillins Allergy Hives Verified 09/28/17 11:53 Home Medications Medication Instructions Recorded Confirmed Last Taken Type Atorvastatin (Nf) [Lipitor] 10 mg PO DAILY 03/17/13 09/28/17 Unknown History Clopidogrel [Plavix] 75 mg PO QDAY 03/17/13 09/28/17 Unknown History Donepezil HCl [Aricept Odt] 10 mg PO QDAY 03/17/13 09/28/17 Unknown History Gabapentin 100 mg PO QHS 03/17/13 09/28/17 Unknown History Losartan [Cozaar] 100 mg PO QDAY #30 tablet 03/19/13 09/28/17 Unknown Rx Insulin Aspart Prot/Aspart(Nf) 30 units SQ DAILY 01/01/14 09/28/17 01/01/14 History [NovoLOG Mix 70/30 VIAL] hydrALAZINE [Apresoline TAB] 50 mg PO Q12H 01/01/14 09/28/17 Unknown History NIFEdipine XL [Procardia Xl] 30 mg PO Q12HR #60 tablet 11/08/14 09/28/17 Unknown Rx Atenolol [Tenormin] 25 mg PO DAILY 09/28/17 09/28/17 Unknown History Esomeprazole Magnesium [NexIUM] 40 mg PO QDAY 09/28/17 09/28/17 Unknown History Tamsulosin [Flomax] 0.4 mg PO QHS 09/28/17 09/28/17 Unknown History amLODIPine [Norvasc] 5 mg PO BID 09/28/17 09/28/17 Unknown History Active Meds: Active Medications Acetaminophen (Tylenol) 650 mg PO Q4H PRN PRN Reason: Pain MILD(1-3)/Fever >100.5/MACK Albuterol (Proventil) 2.5 mg IH Q4HRT PRN PRN Reason: Shortness Of Breath Amlodipine Besylate (Norvasc) 10 mg PO QDAY [facility] Last Admin: 10/02/17 11:21 Dose: 10 mg Atorvastatin Calcium (Lipitor) 10 mg PO HS [facility] Last Admin: 10/01/17 23:19 Dose: 10 mg Clopidogrel Bisulfate (Plavix) 75 mg PO QDAY [facility] Last Admin: 10/02/17 11:20 Dose: 75 mg Donepezil HCl (Aricept) 10 mg PO QDAY [facility] Last Admin: 10/02/17 11:20 Dose: 10 mg Enoxaparin Sodium (Lovenox) 40 mg SUB-Q QDAY@1000 JITENDRA Furosemide (Lasix) 20 mg PO QDAY [facility] Last Admin: 10/02/17 11:19 Dose: 20 mg Gabapentin (Neurontin) 100 mg PO QHS [facility] Last Admin: 10/01/17 23:19 Dose: 100 mg Hydralazine HCl (Apresoline) 5 mg IV Q30MIN PRN PRN Reason: HTN SYS>160 LITTLE>100 Hydralazine HCl (Apresoline) 50 mg PO Q8HR [facility] Last Admin: 10/02/17 06:00 Dose: 50 mg Insulin Human Isoph/Insulin Regular (Humulin 70/30) 30 unit SUB-Q QDDIAB [facility] Last Admin: 10/02/17 11:24 Dose: Not Given Insulin Human Regular (Humulin R) 0 units SUB-Q [facility]; Protocol Last Admin: 10/02/17 08:24 Dose: Not Given Losartan Potassium (Cozaar) 100 mg PO QDAY [facility] Last Admin: 10/02/17 11:19 Dose: 100 mg Nitroglycerin (Nitrostat) 0.4 mg SL Q5M PRN PRN Reason: Chest Pain Ondansetron HCl (Zofran) 4 mg IV Q8H PRN PRN Reason: Nausea And Vomiting Pantoprazole Sodium (Protonix) 40 mg PO DAILY [facility] Last Admin: 10/02/17 11:21 Dose: 40 mg Sodium Chloride (Sodium Chloride Flush Syringe 10 Ml) 10 ml IV BID [facility] Last Admin: 10/02/17 11:24 Dose: 10 ml Sodium Chloride (Sodium Chloride Flush Syringe 10 Ml) 10 ml IV PRN PRN PRN Reason: LINE FLUSH Tamsulosin HCl (Flomax) 0.4 mg PO QHS [facility] Last Admin: 10/01/17 23:20 Dose: 0.4 mg Review of Systems - Constitutional no fever, no chills - Cardiovascular no chest pain - Respiratory no shortness of breath - Gastrointestinal no abdominal pain, no nausea, no vomiting, no heartburn, no dyspepsia/bloating - Integumentary no jaundice Exam Vital Signs Temp Pulse Resp BP Pulse Ox 98.6 F 58 L 18 176/70 97 09/28/17 11:35 09/28/17 11:35 09/28/17 11:35 09/28/17 11:35 09/28/17 11:35 - General physical appearance Positive: well developed, well nourished, no distress, no pain, other (very pleasant elderly gentleman sitting up in bed.) - Eyes Positive: normal occular movement, other (anicteric) - Respiratory Positive: normal expansion, normal respiratory effort, clear to auscultation - Cardiovascular Rhythm: regular - Abdomen Abdomen: Present: soft, bowel sounds normal. Absent: tender, distended, guarding, rigid, surgical scars - Integumentary no rash, no abnormal pigmentation - Psychiatric Psychiatric: appropriate mood/affect, cooperative Results - Labs 09/28/17 11:50 10/01/17 04:39 Abnormal lab results 10/01/17 10/01/17 Range/Units 11:55 22:37 POC Glucose 150 H 265 H (70-105) - Imaging US - abdomen: report reviewed, image reviewed Assessment and Plan - Patient Problems (1) Abdominal pain Current Visit: Yes Status: Acute Qualifiers: Abdominal location: unspecified location Qualified Code(s): R10.9 - Unspecified abdominal pain Plan to address problem: Patient is stable and asymptomatic at this time. It is quite possible that he may have experienced some biliary colic. However, at least as of yesterday, he has had no symptoms with eating. His abdomen is completely benign today. There is no indication of any active infection. Would not recommend any surgery at this time. However, if he continues to experience episodes of postprandial pain, then we would be happy to see him as an outpatient and consider cholecystectomy. Please call if there are any questions. Time=45min
--- NOTE | 2017-10-02 15:59 | Discharge Summary ---
Providers - Providers Date of Admission: 09/28/17 17:18 Date of discharge: 10/02/17 Attending physician: ANA SCHOFIELD 09/28/17 Consult to Cardiac Rehabilitation [CONS] Routine Reason For Exam: Phase I 10/01/17 Physical Therapy Evaluation and Treat [CONS] Routine Comment: Reason For Exam: placement 10/02/17 07:00 Consult to Physician [CONS] Routine Comment: Consulting Provider: ALLA HERNANDEZ Physician Instructions: Reason For Exam: Gall bladder sludge/abd pain Primary care physician: KERWIN DALEY Hospitalization Condition: Stable Disposition: [id number]/[id number] HOME UNDER HOME [facility] Time spent for discharge: 32 min Core Measure Documentation - Palliative Care Palliative Care/ Comfort Measures: Not Applicable - Core Measures Any of the following diagnoses?: none Exam - Constitutional Vitals: Temp Pulse Resp BP Pulse Ox 98.5 F 87 20 137/55 96 10/02/17 05:28 10/02/17 13:24 10/02/17 05:28 10/02/17 13:24 10/02/17 05:28 General appearance: Present: no acute distress, well-nourished - EENT Eyes: Present: PERRL, EOM intact Plan Activity: advance as tolerated, fall precautions Diet: diabetic Special Instructions: physical therapy Additional Instructions: If you have chest pain or shortness of breath, contact M.D. or go to emergency room. Fall precautions Follow up with: KERWIN DALEY JR, MD [Primary Care Provider] - 7 Days KAT TRIMBLE MD [Staff Physician] - 7 Days DOMINIK BEDOYA MD [Staff Physician] - 7 Days Prescriptions: Carvedilol [Coreg] 6.25 mg PO BID #60 tablet Furosemide [Lasix TAB] 20 mg PO QDAY #30 tablet
[2017-10-02 20:19] VITALS: BP 158/56
[2017-10-02] MEDS: NEURONTIN PO SCH (21:04)
[2017-10-02] MEDS: FLOMAX PO SCH (21:04)
[2017-10-03] MEDS ORDERED: LOVENOX SUB-Q SCH (10:00)
== END 2017-10-02 23:05 | disposition home health service (06) | DRG 79 ==
LOC: ED 11:32 → 4A 17:18
PROVIDERS: ADMIT Internal Medicine; ATTEND Internal Medicine
DX: I67.4 Hypertensive encephalopathy (principal); N40.0 Benign prostatic hyperplasia without lower urinary tract symptoms; E11.9 Type 2 diabetes mellitus without complications; Z88.0 Allergy status to penicillin; I10 Essential (primary) hypertension; Z86.73 Personal history of transient ischemic attack (TIA), and cerebral infarction without residual deficits; E78.00 Pure hypercholesterolemia, unspecified; Z79.4 Long term (current) use of insulin; R10.9 Unspecified abdominal pain; F03.90 Unspecified dementia, unspecified severity, without behavioral disturbance, psychotic disturbance, mood disturbance, and anxiety; Z83.3 Family history of diabetes mellitus; Z82.49 Family history of ischemic heart disease and other diseases of the circulatory system; R00.1 Bradycardia, unspecified
CPT/HCPCS: 36415; 74022; 76705; 80048; 80061; 80074; 81001; 82962; 83036; 83880; 84439; 84443; 84484; 85025; 93005; 93010; 93306; A9270-GY; G8978-GP; G8979-GP; J1650; J1815